=== PATIENT | female | born 1980 | race Caucasian/White ===

== ENCOUNTER → 2025-02-19 13:02 | Outpatient (REF) | payer OTHER, SELFPAY ==
--- OUTSIDE RECORDS SUMMARY | 2025-02-27 09:45 | XMS_ITS | Clinical Summary ---
Author Organization [facility] Address [address] [place] [address] Phone Care Team Providers Care Machine Spreader Name Role Phone Unavailable Primary Care Provider Unavailabl e Allergies No known active allergies Medications iron zhzjsl-m-r88-ca -succ. acid-stomach (CHROMAGEN, MULTIGEN) [id number] ws-pe-hgr-mg tablet Take 1 Tab by mouth daily. Active vit-iron fumarate-fa (YENIFER ) 28-0.8 mg Tablet Take 1 Tab by mouth daily. Active HYDROcodone-cristino taminophen (NORCO) 5-325 mg tablet Take 1 Tablet by mouth every 4 hours as needed for Pain, Moderate. Max Daily Amount: 6 Tablets 20 Tablet 7 Active ibuprofen (MOTRIN) 600 mg tablet Take 1 Tablet (600 mg) by mouth every 6 hours as needed for Other (See Comment) (for pain secondary to inflammation). 45 Tablet 7 Active Active Problems Problem Noted Date Diagnosed Date (spontaneous vaginal delivery) 05/08/2017 VAVD 6/14 girl Richy 03/14/2015 Resolved Problems Problem Noted Date Diagnosed Date Resolved Date Normal labor 05/08/2017 05/08/2017 SROM 0015, GBS+, A- 03/14/2015 03/14/20 15 Encounters Date Type Department Care Team Description 02/19/2025 External Device Data ST[facility] ABSTRACTION Provider, Abstract 02/18/2025 External Device Data [facility] ABSTRACTION Provider, Abstract 02/17/2025 External Device Data [facility] ABSTRACTION Provider, Abstract 01/13/2025 External Device Data [facility] ABSTRACTION Provider, Abstract 12/17/2024 External Device Data [facility] ABSTRACTION Provider, Abstract 12/06/2024 External Device Data [facility] ABSTRACTION Provider, Abstract 12/05/2024 External Device Data [facility] ABSTRACTION Provider, Abstract 12/03/2024 External Device Data STL ABSTRACTION Provider, Abstract from Last 3 Months Immunizations Immunization Administration Dates Next Due (ADACEL/BOOSTRIX)(10 YR UP) TDAP VACCINE, 0.5ML, IM 03/01/2015 Influenza Seasonal Unspecifi ed Formulation IM 06/01/2014 Rho (D) IMMUNE GLOBULIN 1,50 0 UNIT(300 MCG) INJECTION 05/08/2017,03/14/2015,03/05/2015,2014 Social History Tobacco Use Types Packs/Day Years Used Date Smoking Tobacco: Former Cigarettes 0.5 10 0 10/01/1988 - 10/01/1998 Smokeless Tobacco: Never Alcohol Use Standard Drinks/Week Comments No 0 (1 standard drink = 0.6 oz pur e alcohol) Comments No Sex and Gender Information Value Date Recorded Sex Assigned at Not on file Legal Sex Female 12:50 PM [employer]IXER AND [employer] Gender Identity Not on file Sexual Orientation Not on file Last Filed Vital Signs Vital Sign Reading Time Taken Comments Blood Pressure 107/75 05/10/2017 8:00 AM CDT Pulse 73 05/10/2017 8:00 AM CDT Temperature 36.5 C (97.7 F) 05/10/2017 8:00 AM CDT Respiratory Rate 18 05/10/2017 8:00 AM CDT Oxygen Saturation 100% 05/10/2017 8:00 AM CDT Inhaled Oxygen Concentration - - Weight 56.2 kg (124 lb) 05/08/2017 7:18 AM CDT Height 152.4 cm (5') 05/08/2017 7:18 AM CDT Body Mass Index 24.22 05/08/2017 7:18 AM CDT Plan of Treatment Health Maintenance Due Date Last Done Comments HEPATITIS B VACCINES (1 of 3 - 19+ 3-dose series) 1997 HPV/Cotest (21-29) 1999 CERVICAL CANCER SCREENING 02/21/2008 HPV/Cotest (30-65) 02/21/2008 PAP SMEAR 02/21/2008 COLORECTAL SCREENING 2023 Colorectal Cancer Screening 2023 FIT-DNA Q 3 years 2023 FIT/FOBT Q 1 year 2023 Flex Sig/CT Colonography Q 5 years 2023 INFLUENZA VACCINE (#1) 2024 06/01/2014 DTAP/TDAP/TD VACCINES (2 - T d or Tdap) 03/01/2025 03/01/2015 BREAST CANCER SCREENING 09/12/2025 09/12/20 24, 07/23/2021, 07/23/2021, Additional history exists Procedures Procedure Name Priority Date/Time Associated Diagnosis Comments MAMMO 3D AMA SCREEN BILAT W OR WO CAD Routine 09/12/2024 11:39 AM MIXER AND SCALER Encounter for screening for malignant neoplasm of breast, unspecified screening modality from Last 3 Months or Most Recently Relevant to Health Maintenance Results * MAMMO 3D AMA SCREEN BILAT W OR WO CAD (09/12/2024 11:39 AM MIXER AND SCALER) Anatomical Region Laterality Modality Breast Bilateral Mammography 09/12/2024 11:4 0 AM MIXER AND SCALER Impressions 09/12/2024 11:44 AM MIXER AND SCALER IMPRESSION: NO MAMMOGRAPHIC EVIDENCE OF MALIGNANCY. OVERALL BIRADS CATEGORY:2 (benign findings). ROUTINE SCREENING MAMMOGRAPHY IS RECOMMENDED IN 12 MONTHS. A normal letter will be sent to patient. Narrative 09/12/2024 11:44 AM MIXER AND SCALER EXAM: MAMMO 3D AMA SCREEN BILAT W OR WO CAD STUDY DATE: 09/12/2024 11:39 AM CLINICAL INDICATION: 44 years old female presents for routine screening mammography. COMPARISON: Prior mammograms, dated 07/23/2021 and 12/03/2013 PROCEDURE: CC and MLO digital mammographic views of the bilateral breasts are obtained. Computer Aided Detection (CAD) was utilized. Tomosynthesis was done with all views. FINDINGS: Breast Density: Heterogeneously dense Right breast: There are stable subcentimeter intramammary lymph nodes in the right upper outer breast at posterior depth. There are no spiculated masses, suspicious microcalcifications or areas of architectural distortion in the right breast. Left breast: There are no spiculated masses, suspicious microcalcifications or areas of architectural distortion in the left breast. us Maria Del Carmen Diehl DO MAMMO ORDERABLES Final Result from Last 3 Months or Most Recently Relevant to Health Maintenance Insurance [employer] [facility] Address: [address] [address] Advance Directives For more information, please contact: [phone] * Full Code (Latest Code Status on File) Date Activated Date Inactivated Comments 05/08/2017 6:06 PM 05/10/2017 12:23 PM * Full Code Date Activated Date Inactivated Comments 05/08/2017 7:50 AM 05/08/2017 6:06 PM * Full Code Date Activated Date Inactivated Comments 03/14/2015 8:50 AM 03/16/2015 1:50 PM * Full Code Date Activated Date Inactivated Comments 03/14/2015 4:02 AM 03/14/2015 8:50 AM
--- OUTSIDE RECORDS SUMMARY | 2025-02-27 09:45 | XMS_ITS | Referral Summary ---
Author Organization [facility] [address] Address [address] [facility] [place] [address] Care Team Providers Care Pick Pack Worker Name Role Phone Maria Del Carmen Diehl DO Unavailable [phone] Ella Moser Primary Care Pr ovider Allergies No known active allergies Medications nitrofurantoin monohydrate (Macrobid) 100 mg capsule Take 1 capsule (100 mg total) by mouth 2 (two) times a day Take one capsule twice daily for 5 days. 10 capsule 2 3 Active Additional Information Patient not taking.Reported on 11/16/2023 buPROPion XL (Wellbutrin XL) 150 mg 24 hr tablet Take 1 tablet (150 mg total) by mouth daily 90 tablet 4 4 Active Active Problems Problem Noted Date Diagnosed Date Encounter for screening colonoscopy 02/14/2024 Social History Tobacco Use Types Packs/Day Years Used Date Smoking Tobacco: Former Passive Smoke Exposure: Past Smokeless Tobacco: Never Tobacco Cessation:Counseling Given: Not Answered Personal Safety Answer Date Recorded Have you ever been in or are you currently in a harmful physical or emotional relationship or is someone making you feel afraid or unsafe? Denies 10/16/2024 Comments No Sex and Gender Information Value Date Recorded Sex Assigned at Not on file Legal Sex Female 9:42 AM DIRECTOR INVE[employer]ANKING Gender Identity Female 10/04/2021 7:31 PM DIRECTOR [employer] Sexual Orientation Straight 10/04/2021 7: 31 PM DIRECTOR [employer]ANKING Last Filed Vital Signs Vital Sign Reading Time Taken Comments Blood Pressure 120/78 10/16/2024 10:11 AM DIRECTOR [employer]ANKING Pulse 63 10/16/2024 10:11 AM DIRECTOR [employer]ING Temperature 36.9 C (98.5 F) 10/16/2024 10:11 AM DIRECTOR [employer]MENT [employer]ANKING Respiratory Rate 18 10/16/2024 10:11 AM DIRECTOR INVESTMENT BANKING Oxygen Saturation 100% 10/16/2024 10:11 AM DIRECTOR [employer]ANKING Inhaled Oxygen Concentration - - Weight 52.2 kg (115 lb) 10/16/2024 8:24 AM DIRECTOR [employer]ANKING Height 152.4 cm (5') 10/16/2024 8:24 AM DIRECTOR [employer]ANKING Body Mass Index 22.46 10/16/2024 8:24 AM DIRECTOR [employer]ING Plan of Treatment Not on file Procedures Procedure Name Priority Date/Time Associated Diagnosis Comments COLONOSCOPY 10/16/2024 8:16 AM DIRECTOR INVESTMENT BANKING THINPREP IMAGING PAP AND HPV MRNA E6/E7 REFLEX HPV 16,18/45 Routine 05/22/2024 10:55 AM CDT Routine gynecological examination from Last 3 Months or Most Recently Relevant to Health Maintenance Results * Colonoscopy (10/16/2024 8:16 AM DIRECTOR INVE[employer]MENT [employer]ANKING) Anatomical Region Laterality Modality Other Narrative Procedure Note Anna Naik MD - 10/16/2024 8:16 AM CST [facility] Patient Name: Lorenza Silva Procedure Date: 10/16/2024 8:16 AM Date of : 1980 Admit Type: Outpatient Age: 44 Gender: Female Attending MD: Anna Naik M.D. Room: [facility] 2 Note Status: Finalized Patient Profile: This is a 44 year old female with no significantpast medical history here for colon cancer screening.Great grandparent with colon cancer. Procedure: Colonoscopy Indications: Screening for colorectal malignant neoplasm, Thisis the patient's first colonoscopy Referring MD: Ella Moser PA-C Providers: Anna Naik M.D. Impression: - One 3 mm polyp in the cecum, removed with a jumbo cold forceps. Resected and retrieved. - External and internal hemorrhoids. Recommendation: - Patient has a contact number available for emergencies. The signs and symptoms of potential delayed complications were discussed with thepatient. Return to normal activities tomorrow. Written discharge instructions were provided to thepatient. - Discharge patient to home (with escort). - Resume previous diet. - Continue present medications. - Await pathology results. - Repeat colonoscopy in 7 years for surveillancebased on pathology results. - Return to referring physician as previously scheduled. Medicines: Monitored Anesthesia Care Complications: No immediate complications. Estimated Blood Loss: Estimated blood loss was minimal. Procedure: Pre-Anesthesia Assessment: - Prior to the procedure, a History and Physicalwas performed, and patient medications and allergieswere reviewed. The patient is competent. The risks and benefits of the procedure and the sedation optionsand risks were discussed with the patient. Allquestions were answered and informed consent was obtained. Patient identification and proposed procedure were verified by the physician, the loan officer and the computer engineering technician in the endoscopy suite. Mental Status Examination: normal. Prophylactic Antibiotics: The patient does not require prophylactic antibiotics. Prior Anticoagulants: The patient has taken no anticoagulant or antiplatelet agents. Afterreviewing the risks and benefits, the patient was deemed in satisfactory condition to undergo the procedure.The anesthesia plan was to use monitored anesthesiacare (MAC). Immediately prior to administration of medications, the patient was re-assessed foradequacy to receive sedatives. The heart rate, respiratory rate, oxygen saturations, blood pressure, adequacyof pulmonary ventilation, and response to care were monitored throughout the procedure. The physical status of the patient was re-assessed after the procedure. The benefits, risks and alternatives of theprocedure and sedation were discussed and informed consentwas obtained. All questions were answered. Please referto the signed informed consent document in the medical record. The bowel preparation used was Miralax via split dose instruction. The bowel preparation usedwas bisacodyl tablets via split dose instruction. The scope was passed under direct vision. The Pediatric Colonoscope [id number]-[id number] was introducedthrough the anus and advanced to the the cecum, identifiedby appendiceal orifice and ileocecal valve. The colonoscopy was performed without difficulty. The patient tolerated the procedure well. The qualityof the bowel preparation was good. Bowel prep was administered using a split dose. Findings: The perianal and digital rectal examinations were normal. A 3 mm polyp was found in the cecum. The polyp was sessile. The polyp was removed with a jumbo cold forceps. Resection and retrieval were complete. External and internal hemorrhoids were found during retroflexion. Anna Naik M.D. 10/16/2024 9:42:39 AM Number of Addenda: 0 Note Initiated On: 10/16/2024 8:16 AM Procedure Code(s): --- Professional --- 88109, Colonoscopy, flexible; with biopsy, single or multiple --- Technical --- 12221, Colonoscopy, flexible; with biopsy, single or multiple Diagnosis Code(s): --- Professional --- Z12.11, Encounter for screening for malignant neoplasm of colon D12.0, Benign neoplasm of cecum K64.8, Other hemorrhoids --- Technical --- Z12.11, Encounter for screening for malignant neoplasm of colon D12.0, Benign neoplasm of cecum K64.8, Other hemorrhoids CPT copyright 2020 [place] [employer]. All rights reserved. The codes documented in this report are preliminary and upon cloud architect reviewmay be revised to meet current compliance requirements. Recognized by the [place] [employer] for promoting quality in endoscopy Anna Naik MD ENDOSCOPY PROCEDURES Final Resul t * ThinPrep(R) Imaging Pap and HPV mRNA E6/E7 Reflex HPV 16,18/45 (05/22/2024 10:55 AM CDT) CLINICAL INFORMATION: [facility] Comment:None given LMP [facility] Comment:NONE GIVEN Previous Pap [facility] Comment:NONE GIVEN Prev. Bx [facility] Comment:NONE GIVEN SOURCE: [facility] Comment:None given Pap, specimen adequacy [facility] Comment: Satisfactory for evaluation. Endocervical/transformation zone component present. Age and/or menstrual status not provided HPV interp [facility] Comment: Cytology Results: Negative for intraepithelial lesion or malignancy. COMMENTS [facility] Comment: This Pap test has been evaluated with computer assisted technology. Installment Dealer [facility] Comment: MEF, CT(ASCP) CT screening location: [place] [address] [place] [address] Comment [facility] Comment: EXPLANATORY NOTE: The Pap is a screening test for cervical cancer. It is not a diagnostic test and is subject to false negative and false positive results. It is most reliable when a satisfactory sample, regularly obtained, is submitted with relevant clinical findings and history, and when the Pap result is evaluated along with historic and current clinical information. Human papillomavirus RNA, High Risk E6/E7 Not Detected Not Detected [facility] Comment: Methodology: Intelligence Applications-Mediated Amplification This assay detects E6/E7 viral messenger RNA (mRNA) from 14 high-risk HPV types (16,18,31,33,35,39,45,51,52,56,58,59,66,68). Cervical sources are required for HPV testing. If a vaginal source from a patient who has had a total hysterectomy with removal of cervix was submitted, please contact the testing laboratory for alternative testing options. For additional information, please refer to http://education.EventMama/faq/YHF583s7 (This link if provided for information/ educational purposes only.) Swab 05/22/2024 10:5 5 AM CDT 05/22/2024 9:27 PM CDT us Maria Del Carmen Amparo Fazal DO LAB CYTOLOGY ORDERABLES Final Result [facility] [address] [place] [address] [facility] [address] [place] [address] from Last 3 Months or Most Recently Relevant to Health Maintenance Insurance [employer]ESS [employer] OPEN ACCESS [employer] OPEN ACCESS Advance Directives For more information, please contact: [phone] * Full Code (Latest Code Status on File) Date Activated Date Inactivated Comments 10/16/2024 8:19 AM 10/16/2024 2:35 PM * Full Code Date Activated Date Inactivated Comments 10/16/2024 8:19 AM 10/16/2024 8:19 AM Care Teams Pick Pack Worker Relationship Specialty Start Date End Date Ella Moser PA [address] [place] [address] PCP - General Physician Transition Coach 02/14/24 [place] [address] [place] [address] Consulting Physician Obstetrics and Gynecology 11/17/23
--- OUTSIDE RECORDS SUMMARY | 2025-02-27 09:45 | XMS_ITS | Clinical Summary ---
Author Organization [facility] [id number] [facility] [place] [address] Care Team Providers Care Compliance Project Manager Name Role Phone Maria Del Carmen Diehl DO Unavailable [phone] Ella Moser Primary Care Pr ovider Allergies [...] Diagnosed Date Encounter for screening colonoscopy 02/14/2024 Surgical History Surgery Date Site/Laterality Comments TUBAL LIGATION 10/01/2016 - 09/30/2017 HYSTEROSCOPY 10/01/2018 - 09/30/2019 ENDOMETRIAL ABLATION W/ NOVASURE 05/10/2022 Novasure and LEEP CERVICAL BIOPSY W/ LOOP ELECTRODE EXCISION 05/10/2022 for RUBENS 1 POS 16 HRHPV Medical History Medical History Date Comments 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 n 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 2020 pos 16, neg 18 Meningitis 1979 Anxiety not requiring me dication Family History Medical History Relation Name Comments Breast cancer Paternal Grandmother deceas ed from stroke Ovarian cancer Paternal Half-Sister berto gusman's mother ovarian cancer Colon cancer Neg Hx Relation Name Status Comments Paternal Grandmother Paternal Half-Sister berto Alive Social History Tobacco Use Types Packs/Day Years [...] on file Legal Sex Female 9:42 AM BRIM POUNCING MACHINE OPERATOR Gender Identity Female 10/04/2021 7:31 PM BRIM POUNCING MACHINE OPERATOR Sexual Orientation Straight 10/04/2021 7: 31 PM BRIM POUNCING MACHINE OPERATOR Obstetrics History Para Term AB IAB SAB Ectopic Multiple Livin g Live Births 6 4 4 2 2 4 4 Date Outcome GA Total Labor Labor/2nd/3rd Weight Sex Type Anes PTL Paula A1 A5 Name Clin 03/2004 SAB Demise 005 Term M Vag-S pont Living Comments:Ghassan Bellamy 008 Term M Vag-S pont Living Comments:Ghassan Lazaro 015 Term F Vag-S pont Living Comments:Fernando Lockhart 07/2016 SAB Demise 017 Term F Vag-S pont Living Comments:Fernando Johnson Last Filed Vital Signs Vital Sign Reading Time Taken Comments Blood Pressure 120/78 10/16/2024 10:11 AM BRIM POUNCING MACHINE OPERATOR Pulse 63 10/16/2024 10:11 AM BRIM POUNCING MACHINE OPERATOR Temperature 36.9 C (98.5 F) 10/16/2024 10:11 AM BRIM POUNCING MACHINE OPERATOR Respiratory Rate 18 10/16/2024 10:11 AM BRIM POUNCING MACHINE OPERATOR Oxygen Saturation 100% 10/16/2024 10:11 AM BRIM POUNCING MACHINE OPERATOR Inhaled Oxygen Concentration - - Weight 52.2 kg (115 lb) 10/16/2024 8:24 AM BRIM POUNCING MACHINE OPERATOR Height 152.4 cm (5') 10/16/2024 8:24 AM BRIM POUNCING MACHINE OPERATOR Body Mass Index 22.46 10/16/2024 8:24 AM BRIM POUNCING MACHINE OPERATOR Plan of Treatment Health Maintenance Due Date Last Done Comments Depression Screening 1980 Hepatitis C Screening 1980 Hepatitis B Screening 02/21/1996 DTaP/Tdap/Td Vaccine (2 - Td or Tdap) 03/01/2025 03/01/2015 Cervical Cancer Screening 05/22/20252023, 11/16/2023, 05/18/2023, Additional history exists Regular Well Visit/Exam 18-64 05/22/2025 05/22/2024, 05/18/2023, 04/05/2022, Additional history exists Influenza Vaccine (Season Ended) 2025 07/28/2019, 09/05/2018, 06/01/2014 Breast Cancer Screening-Mammogram 09/12/2025 09/12/2024, 09/12/2024 Colon Cancer Screening-Colonoscopy 10/16/2034 10/16/2024 HPV Vaccines Aged Out No longer eligi ble based on patient's age to complete this topic Pneumococcal vaccine <65 Aged Out No longer eligible based on patient's age to complete this topic Procedures Procedure Name Priority Date/Time Associated Diagnosis Comments COLONOSCOPY 10/16/2024 8:16 AM BRIM POUNCING MACHINE OPERATOR THINPREP IMAGING PAP AND HPV MRNA E6/E7 REFLEX HPV 16,18/45 Routine 05/22/2024 10:55 AM CDT Routine gynecological examination from Last 3 Months or Most Recently Relevant to Health Maintenance Results * Colonoscopy (10/16/2024 8:16 AM BRIM POUNCING MACHINE OPERATOR) Anatomical Region Laterality Modality Other Narrative Procedure Note Anna Naik MD - 10/16/2024 8:16 AM CST [facility] Patient Name: Lorenza Silva Procedure Date: 10/16/2024 8:16 AM Date of : 1980 Admit Type: Outpatient Age: 44 Gender: Female Attending MD: Yixi Tu , M.D. Room: [facility] ENDOSCOPY ROOM 2 Note Status: Finalized Patient [...] procedure were verified by the physician, the foreign car mechanic and the electronic service technician in the endoscopy suite. Mental Status [...] under direct vision. The Pediatric Colonoscope [id number] was introducedthrough the anus and advanced to [...] 8:16 AM Procedure Code(s): --- Professional --- 49304, Colonoscopy, flexible; with biopsy, single or multiple --- Technical --- 60444, Colonoscopy, flexible; with biopsy, single or multiple Diagnosis Code(s): --- Professional --- Z12.11, Encounter for screening for malignant neoplasm of colon D12.0, Benign neoplasm of cecum K64.8, Other hemorrhoids --- Technical --- Z12.11, Encounter for screening for malignant neoplasm of colon D12.0, Benign neoplasm of cecum K64.8, Other hemorrhoids CPT copyright 2020 [employer]. All rights reserved. The codes documented in this report are preliminary and upon land leasing information clerk reviewmay be revised to meet current compliance requirements. Recognized by the [employer] for promoting quality in endoscopy Anna Naik MD ENDOSCOPY PROCEDURES Final Resul t * ThinPrep(R) Imaging Pap and HPV mRNA E6/E7 Reflex HPV 16,18/45 (05/22/2024 10:55 AM CDT) CLINICAL INFORMATION: [facility] Comment:None given LMP [facility] Comment:NONE GIVEN Previous Pap [facility] Comment:NONE GIVEN Prev. Bx [facility] Comment:NONE GIVEN SOURCE: [facility] Comment:None given Pap, specimen adequacy [facility] Comment: Satisfactory for evaluation. Endocervical/transformation zone component present. Age and/or menstrual status not provided HPV interp [facility] Comment: Cytology Results: Negative for intraepithelial lesion or malignancy. COMMENTS [facility] Comment: This Pap test has been evaluated with computer assisted technology. Border Measurer And Cutter [facility] Comment: MEF, CT(ASCP) CT screening location: [place] [address] [place] [address] [facility] Comment: EXPLANATORY NOTE: The Pap is a [...] High Risk E6/E7 Not Detected Not Detected [facility] Comment: Methodology: Varnish Maker-Mediated Amplification This assay detects E6/E7 viral messenger RNA (mRNA) from 14 high-risk HPV types (16,18,31,33,35,39,45,51,52,56,58,59,66,68). Cervical sources are required for HPV testing. If a vaginal source from a patient who has had a total hysterectomy with removal of cervix was submitted, please contact the testing laboratory for alternative testing options. For additional information, please refer to http://education.TripTouch/faq/OGL730r0 (This link if provided for information/ educational purposes only.) Swab 05/22/2024 10:5 5 AM CDT 05/22/2024 9:27 PM CDT Maria Del Carmen Diehl DO LAB CYTOLOGY ORDERABLES Final Result [facility] [address] [place] [address] [facility] [address] [place] [address] from Last 3 Months or Most Recently Relevant to Health Maintenance Insurance [employer] OPEN ACCESS [employer] OPEN ACCESS [employer] OPEN ACCESS Advance Directives For more information, please contact: [phone] * Full Code (Latest Code Status on File) Date Activated Date Inactivated Comments 10/16/2024 8:19 AM 10/16/2024 2:35 PM * Full Code Date Activated Date Inactivated Comments 10/16/2024 8:19 AM 10/16/2024 8:19 AM Care Teams Compliance Project Manager Relationship Specialty Start Date End Date Ella Moser PA [address] [place] [address] PCP - General Physician Wireless Network Engineer 02/14/24 [place] [address] [place] [address] Consulting Physician Obstetrics and Gynecology 11/17/23
--- OUTSIDE RECORDS SUMMARY | 2025-02-27 09:45 | XMS_ITS | Continuity of Care Document ---
Author Organization [facility] Address [address] [place] [address] [address] [place] [address] Phone Care Team Providers Care Pricing Director Name Role Phone Vargas OD, Remi Unavailable Unavailable Procedures Procedure Date Eye Exam & Treatment Refraction Eye Exam, New Patient Refraction Advance Directives Directive Yes / No Effective Date File Name No Information Encounters Encounter Description Practice Location Reason(s) For Visit Diagnoses Date Provider Providers Copied on Encounter [facility], [id number] [place] [address] [address], [place], [place], [id number], [place] tel:[phone] [facility] No Information 200 9 Vargas OD Remi. [address] , [address], [place], [address], [place]. tel:[phone] [facility], [address] [place] [address] [address], [place], [place], [id number], [place] tel:[phone] [facility] No Information 8 7 Wankum Pramod. [address] [facility], [address], [place], [place], [id number], [place]. tel:[phone] Family History Family Member Type Diagnosis Age At Onset No Information Payers Payer name Insurance type Covered republican ID Authoriza tion(s) No Information Social History Type Description Quantity Date Captured Comments Sex Female Smoking Status No Information Chief Complaint And Reason For Visit No Information Reason For Referral Reason For Referral No Information History Of Present Illness Encounter Date Complaint History Of Prese nt Illness No Information Functional Status Date Functional Assessmen t No Information Instructions Date Instruction Additional Infor mation No Information Assessments Type Assessment Date No Information Patient Care Teams Name Effective Dates (start - stop) Status Members No Information
--- OUTSIDE RECORDS SUMMARY | 2025-02-27 09:45 | XMS_ITS | Data Portability ---
Author Organization [facility] Address [address] [place] [address] Care Team Providers Care Drum Builder Name Role Phone ELLA MELENDREZ Primary Care Provider Unavailab le Assessment Encounter Date Assessment Date Assessment LastModified by Organization Details LastModified Time 02/13/2024 02/13/2024 For gynecology sees [facility] in [facility]. Mammogram is due. eye exam and dental UTD [email or web address] Not available 03/02/2024 20:33:05 Plan of Treatment Reminders Order Date Submit Date Provider Last Modified By Organization Details Last Modified Time Details Appointments ANNUA L 30 2025 09:30A M BRODERICK [place] Not available Not available Not available Lab lh + FSH, serum 2023 024 [facility], [address] [facility] [address], [place], [address], 03/11/2024 10:14:54 estra diol, serum 2023 024 [facility], [address] [facility] [address], [place], [address], 03/11/2024 10:14:52 proge stero ne, serum 2023 024 [facility], [address] [facility], [facility] [address], [place], [address], 03/11/2024 10:14:50 TSH + free T4, serum 2023 024 [facility], [address] [facility], [facility] [address], [place], [address], 03/11/2024 10:14:47 lipid panel , serum 2023 024 [facility], [address] [facility], [facility] [address], [place], [address], 03/11/2024 10:14:46 CMP, serum or plasm a 2023 024 [facility], [address] [facility], [facility] [address], [place], [address], 03/11/2024 10:14:48 CBC w/ auto diff 2023 024 [facility], [address] [facility], [facility] [address], [place], [address], 03/11/2024 10:14:53 HbA1c (hemo globi n A1c), blood 2023 024 [facility], [address] [facility], [facility] [address], [place], [address], 03/11/2024 10:14:49 Referral None recor ded. Procedures colon oscop y scree arnold (PROC ) [address] [facility] [place], [address] [place] [address], [address], [place], [address], 10/16/2024 10:46:13 Surgeries None recor ded. Imaging None recor ded. Medication Orders None recor ded. Patient TargetsNo targets recorded. Patient InstructionsNo instructions recorded. Reason for Referral Plastic Surgeon Referral for Cyst of scalp 1cm approx superior cyst. Referring Physician: Ella Melendrez, Internal Medicine, Encounter Date: 02/13/2025 Results Created Date Observation Date Name Description Value Unit Range Abnormal Flag Note LastModifiedBy Organization Detail LastModifiedTime 03/10/20 24 03/11/2024 LIPID PANEL W/ CHOL/ HDL RATIO cholesterol, total 195 mg/dL 100-19 9 Not Available [facility] ([facility]) [address] [facility], [place], [address], 03/11/2024 10:14:45 03/10/20 24 03/11/2024 LIPID PANEL W/ CHOL/ HDL RATIO triglyceride s 67 mg/dL 0-149 Not Available [facility] ([facility]) [address] [place], [address], 03/11/2024 10:14:45 03/10/20 24 03/11/2024 LIPID PANEL W/ CHOL/ HDL RATIO HDL cholesterol 90 mg/dL >39 Not Available [facility] ([facility]) [address] [place], [address], 03/11/2024 10:14:45 03/10/20 24 03/11/2024 LIPID PANEL W/ CHOL/ HDL RATIO VLDL cholesterol marielos 12 mg/dL 5-40 Not Available [facility] ([facility]) [address] [place], [address], 03/11/2024 10:14:45 03/10/20 24 03/11/2024 LIPID PANEL W/ CHOL/ HDL RATIO LDL chol calc ([facility]) 93 mg/dL 0-99 Not Available [facility] ([facility]) [address] [place], [address], 03/11/2024 10:14:45 03/10/20 24 03/11/2024 LIPID PANEL W/ CHOL/ HDL RATIO LDL calc comment: - Test not perfo rmed Not Available [facility] ([facility]) [address] [place], [address], 03/11/2024 10:14:45 03/10/20 24 03/11/2024 LIPID PANEL W/ CHOL/ HDL RATIO T. chol/HDL ratio 2.2 ratio 0.0-4. 4 T. Chol/ HDL Ratio Men Women 1/2 Avg.R isk 3.4 3.3 Avg.R isk 5.0 4.4 2X Avg.R isk 9.6 7.1 3X Avg.R isk 23.4 11.0 Not Available [facility] ([facility]) [address] [place], [address], 03/11/2024 10:14:45 03/10/20 24 03/11/2024 TSH+F REE T4 TSH 2.570 uIU/m L 0.450- 4.500 Not Available [facility] ([facility]) [address] [place], [address], 03/11/2024 10:14:47 03/10/20 24 03/11/2024 TSH+F REE T4 T4,free(dire ct) 1.03 NG/dL 0.82-1 .77 Not Available [facility] ([facility]) [address] [place], [address], 03/11/2024 10:14:47 03/10/20 24 03/11/2024 COMP. METAB OLIC PANEL (14) glucose 96 mg/dL 70-99 Not Available [facility] ([facility]) [address] [place], [address], 03/11/2024 10:14:48 03/10/20 24 03/11/2024 COMP. METAB OLIC PANEL (14) BUN 13 mg/dL 6-24 Not Available [facility] ([facility]) [address] [place], [address], 03/11/2024 10:14:48 03/10/20 24 03/11/2024 COMP. METAB OLIC PANEL (14) creatinine 0.76 mg/dL 0.57-1 .00 Not Available [facility] ([facility]) [address] [place], [address], 03/11/2024 10:14:48 03/10/20 24 03/11/2024 COMP. METAB OLIC PANEL (14) eGFR 98 mL/mi n/1.7 3 >59 Not Available [facility] ([facility]) [address] [facility] [address], [place], [address], 03/11/2024 10:14:48 03/10/20 24 03/11/2024 COMP. METAB OLIC PANEL (14) BUN/creatini ne ratio 17 9-23 Not Available [facility] ([facility]) [address] [facility] [address], [place], [address], 03/11/2024 10:14:48 03/10/20 24 03/11/2024 COMP. METAB OLIC PANEL (14) sodium 140 mmol/ L 134-14 4 Not Available [facility] ([facility]) [address] [facility] [address], [place], [address], 03/11/2024 10:14:48 03/10/20 24 03/11/2024 COMP. METAB OLIC PANEL (14) potassium 4.1 mmol/ L 3.5-5. 2 Not Available [facility] ([facility]) [address] [facility], [place], [address], 03/11/2024 10:14:48 03/10/20 24 03/11/2024 COMP. METAB OLIC PANEL (14) chloride 102 mmol/ L 96-106 Not Available [facility] ([facility]) [address] [facility] [address], [place], [address], 03/11/2024 10:14:48 03/10/20 24 03/11/2024 COMP. METAB OLIC PANEL (14) carbon dioxide, total 24 mmol/ L 20-29 Not Available [facility] ([facility]) [address] [facility] [address], [place], [address], 03/11/2024 10:14:48 03/10/20 24 03/11/2024 COMP. METAB OLIC PANEL (14) calcium 9.2 mg/dL 8.7-10 .2 Not Available [facility] ([facility]) [address] [facility], [place], [address], 03/11/2024 10:14:48 03/10/20 24 03/11/2024 COMP. METAB OLIC PANEL (14) protein, total 6.7 g/dL 6.0-8. 5 Not Available [facility] ([facility]) [address] [facility], [place], [address], 03/11/2024 10:14:48 03/10/20 24 03/11/2024 COMP. METAB OLIC PANEL (14) albumin 4.5 g/dL 3.9-4. 9 Not Available [facility] ([facility]) [address] [facility], [place], [address], 03/11/2024 10:14:48 03/10/20 24 03/11/2024 COMP. METAB OLIC PANEL (14) globulin, total 2.2 g/dL 1.5-4. 5 Not Available [facility] ([facility]) [address] [facility], [place], [address], 03/11/2024 10:14:48 03/10/20 24 03/11/2024 COMP. METAB OLIC PANEL (14) A/G ratio 2.0 Not Available [facility] ([facility]) [address] [facility], [place], [address], 03/11/2024 10:14:48 03/10/20 24 03/11/2024 COMP. METAB OLIC PANEL (14) bilirubin, total 0.4 mg/dL 0.0-1. 2 Not Available [facility] ([facility]) [address] [facility] [address], [place], [address], 03/11/2024 10:14:48 03/10/20 24 03/11/2024 COMP. METAB OLIC PANEL (14) alkaline phosphatase 50 IU/L 44-121 Not Available [facility] ([facility]) [address] [facility] [address], [place], [address], 03/11/2024 10:14:48 03/10/20 24 03/11/2024 COMP. METAB OLIC PANEL (14) AST (SGOT) 23 IU/L 0-40 Not Available [facility] ([facility]) [address] [place], [address], 03/11/2024 10:14:48 03/10/20 24 03/11/2024 COMP. METAB OLIC PANEL (14) ALT (SGPT) 19 IU/L 0-32 Not Available [facility] ([facility]) [address] [place], [address], 03/11/2024 10:14:48 03/10/20 24 03/11/2024 HEMOG LOBIN A1C hemoglobin A1C 5.4 % 4.8-5. 6 Predi abete s: 5.7 - 6.4 Diabe starr: >6.4 Glyce otto contr ol for adult s with diabe starr: <7.0 Not Available [facility] ([facility]) [address] [place], [address], 03/11/2024 10:14:49 03/10/20 24 03/11/2024 PROGE STERO NE progesterone 0.2 NG/mL Folli cular phase 0.1 - 0.9 Lutea l phase 1.8 - 23.9 Ovula tion phase 0.1 - 12.0 Pregn ant First trime ster 11.0 - 44.3 Secon d trime ster 25.4 - 83.3 Third trime ster 58.7 - 214.0 Postm enopa usal 0.0 - 0.1 Not Available [facility] ([facility]) [address] [place], [address], 03/11/2024 10:14:50 03/10/20 24 03/11/2024 ESTRA DIOL estradiol 92.9 pg/mL Adult Femal e Range Folli cular phase 12.5 - 166.0 Ovula tion phase 85.8 - 498.0 Lutea l phase 43.8 - 211.0 Postm enopa usal <6.0 - 54.7 Pregn ivy 1st trime ster 215.0 - >4300 .0 Sabi ECLIA metho dolog y Not Available [facility] ([facility]) [address] [facility] [address], [place], [address], 03/11/2024 10:14:51 03/10/20 24 03/11/2024 CBC WITH DIFFE RENTI AL/PL ATELE T WBC 5.6 x10e3 /uL 3.4-10 .8 Not Available [facility] ([facility]) [address] [facility] [address], [place], [address], 03/11/2024 10:14:53 03/10/20 24 03/11/2024 CBC WITH DIFFE RENTI AL/PL ATELE T RBC 3.89 x10e6 /uL 3.77-5 .28 Not Available [facility] ([facility]) [address] [facility] [address], [place], [address], 03/11/2024 10:14:53 03/10/20 24 03/11/2024 CBC WITH DIFFE RENTI AL/PL ATELE T hemoglobin 12.5 g/dL 11.1-1 5.9 Not Available [facility] ([facility]) [address] [place], [address], 03/11/2024 10:14:53 03/10/20 24 03/11/2024 CBC WITH DIFFE RENTI AL/PL ATELE T hematocrit 36.8 % 34.0-4 6.6 Not Available [facility] ([facility]) [address] [place], [address], 03/11/2024 10:14:53 03/10/20 24 03/11/2024 CBC WITH DIFFE RENTI AL/PL ATELE T MCV 95 fL 79-97 Not Available [facility] ([facility]) [address] [place], [address], 03/11/2024 10:14:53 03/10/20 24 03/11/2024 CBC WITH DIFFE RENTI AL/PL ATELE T MCH 32.1 pg 26.6-3 3.0 Not Available [facility] ([facility]) [address] [facility] [address], [place], [address], 03/11/2024 10:14:53 03/10/20 24 03/11/2024 CBC WITH DIFFE RENTI AL/PL ATELE T MCHC 34.0 g/dL 31.5-3 5.7 Not Available [facility] ([facility]) [address] [facility] [address], [place], [address], 03/11/2024 10:14:53 03/10/20 24 03/11/2024 CBC WITH DIFFE RENTI AL/PL ATELE T RDW 12.4 % 11.7-1 5.4 Not Available [facility] ([facility]) [address] [facility] [address], [place], [address], 03/11/2024 10:14:53 03/10/20 24 03/11/2024 CBC WITH DIFFE RENTI AL/PL ATELE T platelets 308 x10e3 /uL 150-45 0 Not Available [facility] ([facility]) [address] [facility] [address], [place], [address], 03/11/2024 10:14:53 03/10/20 24 03/11/2024 CBC WITH DIFFE RENTI AL/PL ATELE T neutrophils 58 % notest ab. Not Available [facility] ([facility]) [address] [place], [address], 03/11/2024 10:14:53 03/10/20 24 03/11/2024 CBC WITH DIFFE RENTI AL/PL ATELE T lymphs 31 % notest ab. Not Available [facility] ([facility]) [address] [place], [address], 03/11/2024 10:14:53 03/10/20 24 03/11/2024 CBC WITH DIFFE RENTI AL/PL ATELE T monocytes 9 % notest ab. Not Available [facility] ([facility]) [address] [facility], [place], [address], 03/11/2024 10:14:53 03/10/20 24 03/11/2024 CBC WITH DIFFE RENTI AL/PL ATELE T eos 1 % notest ab. Not Available [facility] ([facility]) [address] [facility] [address], [place], [address], 03/11/2024 10:14:53 03/10/20 24 03/11/2024 CBC WITH DIFFE RENTI AL/PL ATELE T basos 1 % notest ab. Not Available [facility] ([facility]) [address] [facility] [address], [place], [address], 03/11/2024 10:14:53 03/10/20 24 03/11/2024 CBC WITH DIFFE RENTI AL/PL ATELE T neutrophils (absolute) 3.2 x10e3 /uL 1.4-7. 0 Not Available [facility] ([facility]) [address] [facility], [place], [address], 03/11/2024 10:14:53 03/10/20 24 03/11/2024 CBC WITH DIFFE RENTI AL/PL ATELE T lymphs (absolute) 1.7 x10e3 /uL 0.7-3. 1 Not Available [facility] ([facility]) [address] [facility], [place], [address], 03/11/2024 10:14:53 03/10/20 24 03/11/2024 CBC WITH DIFFE RENTI AL/PL ATELE T monocytes(ab solute) 0.5 x10e3 /uL 0.1-0. 9 Not Available [facility] ([facility]) [address] [facility] [address], [place], [address], 03/11/2024 10:14:53 03/10/20 24 03/11/2024 CBC WITH DIFFE RENTI AL/PL ATELE T eos (absolute) 0.1 x10e3 /uL 0.0-0. 4 Not Available [facility] ([facility]) [address] [place], [address], 03/11/2024 10:14:53 03/10/20 24 03/11/2024 CBC WITH DIFFE RENTI AL/PL ATELE T baso (absolute) 0.1 x10e3 /uL 0.0-0. 2 Not Available [facility] ([facility]) [address] [place], [address], 03/11/2024 10:14:53 03/10/20 24 03/11/2024 CBC WITH DIFFE RENTI AL/PL ATELE T immature granulocytes 0 % notest ab. Not Available [facility] ([facility]) [address] [place], [address], 03/11/2024 10:14:53 03/10/20 24 03/11/2024 CBC WITH DIFFE RENTI AL/PL ATELE T immature grans (abs) 0.0 x10e3 /uL 0.0-0. 1 Not Available [facility] ([facility]) [address] [place], [address], 03/11/2024 10:14:53 03/10/20 24 03/11/2024 FSH AND LH LH 5.6 mIU/m L Adult Femal e Range Folli cular phase 2.4 - 12.6 Ovula tion phase 14.0 - 95.6 Lutea l phase 1.0 - 11.4 Postm enopa usal 7.7 - 58.5 Not Available [facility] ([facility]) [address] [place], [address], 03/11/2024 10:14:54 03/10/20 24 03/11/2024 FSH AND LH FSH 7.6 mIU/m L Adult Femal e Range Folli cular phase 3.5 - 12.5 Ovula tion phase 4.7 - 21.5 Lutea l phase 1.7 - 7.7 Postm enopa usal 25.8 - 134.8 Not Available [facility] ([facility]) [address] [facility] [address], [place], [address], 03/11/2024 10:14:54 05/22/20 24 05/22/2024 pap, IG + HR HPV HPV negati ve Not Available Not Available 15:29:24 11/06/19 25 10/16/2024 colon oscop y scree arnold (PROC ) No observ ation record ed. [facility] [address], [place], [address], 11/07/2024 00:44:52 Result Notes None recorded. Problems Name Problem SNOMED Code Status Onset Date Resolution Date Notes Provider Name and Address Organization Details Recorded Time [facility] 5188082299668 04 Active 2023 BRODERICK Medellin Attn: Elyse mitchell,[address] [facility], [place], [address], [facility] 4 20:34:10 History of polyp of colon 838771309 Active 2024 BRODERICK Med[place]in Attn: Elyse mitchell,[address] [facility], [place], [address], [facility] 5 10:33:49 Problem Notes None recorded. Procedures Surgical History Date Name Laterality Status Provider Name and Address Organization Details Recorded Time colonoscopy completed Jessie Rolle MA [facility] 02/13/2025 10:22:29 excision of bilateral fallopian tubes and ovaries completed Jessie Rolle MA [facility] 02/13/2024 17:43:27 D & c after delivery completed Jessie Rolle MA [facility] 02/13/2024 17:43:32 LEEP completed Jessie Rolle MA [facility] 02/13/2024 17:43:37 Imaging Results None recorded. Procedure Notes None recorded. Medical Equipment None Reported. Allergies No known drug allergies Medications Not known to be on any medication Vitals Date Recorded Body weight Respiratory rate Body mass index (BMI) Body height Oxygen saturation Oxygen saturation in Arterial blood by Pulse oximetry Heart rate Systolic blood pressure Diastolic blood pressure Provider Name and Address Organization Details Last Updated DateTime 4 66052.3 1 g 20 /min 22.8 kg/m2 152.4 cm 99 % 99 % 77 /min 128 mm[Hg] 78 mm[Hg] Jessie Rolle MA [facility] 4 16:49:22 Date Recorded Body height Body mass index (BMI) Body weight Respiratory rate Oxygen saturation Oxygen saturation in Arterial blood by Pulse oximetry Heart rate Systolic blood pressure Diastolic blood pressure Provider Name and Address Organization Details Last Updated DateTime 5 152.4 cm 22.3 kg/m2 94772.5 3 g 18 /min 100 % 100 % 62 /min 122 mm[Hg] 70 mm[Hg] Jessie Rolle MA [facility] 5 10:24:26 Date Recorded Body height Body mass index (BMI) Body weight Body temperature Respiratory rate Heart rate Systolic blood pressure Diastolic blood pressure Provider Name and Address Organization Details Last Updated DateTime 5 152.4 cm 23.6 kg/m2 65907.6 8 g 98 [degF] 16 /min 62 /min 124 mm[Hg] 75 mm[Hg] Elvia trujillo MA [facility] 5 12:37:32 Social History Question Answer Notes LastModified by Organizat ion Details LastModified Time Tobacco Smoking Status Former Smoker quit 25 Jessie Rolle MA [facility], [facility] 02/13/2024 16:46:03 Do You Have An Advance Directive? No Information not available 02/13/2024 Are You Blind Or Do You Have Difficulty Seeing? No Glasses Information not available 02/13/2024 What Is Your Level Of Caffeine Consumption? Occasional Tea, 1x A Week Information not available 02/13/2024 In The 14 Days Before Symptom Onset, Have You Had Close Contact [facility] While That Case Was Ill? No Information not available 02/13/2024 In The 14 Days Before Symptom Onset, Have You Had Close Contact With A Person Who Is Under Investigation For COVID-19 While That Person Was Ill? No Information not available 02/13/2024 Have You Been To An Area Known To Be High Risk For COVID-19? No Information not available 02/13/2024 Are You Deaf Or Do You Have Serious Difficulty Hearing? No Information not available 02/13/2024 What Type Of Diet Are You Following? REGULAR Information not available 02/13/2024 Are There Any Guns Present In Your Home? No Information not available 02/13/2024 What Was The Date Of Your Most Recent Tobacco Screening? 02/16/2025 [email or web address] Information not available 02/16/2025 What Is Your Current Pack Years? 10-19packyear s Information not available 02/13/2024 What Is Your Relationship Status? Information not available 02/13/2024 Do You Use Your Seat Belt Or Car Seat Routinely? Yes Information not available 02/13/2024 Do You Have Smoke And Carbon Monoxide Detectors In Your Home? Yes Information not available 02/13/2024 At What Age Did You Start Smoking Tobacco? 10 Information not available 02/13/2024 How Much Tobacco Do You Smoke? No Information not available 02/13/2024 Do You Use Sunscreen Routinely? Yes Information not available 02/13/2024 Has Tobacco Cessation Counseling Been Provided? Yes Information not available 02/13/2024 On What Date Was Tobacco Cessation Counseling Provided? 02/13/2025 Information not available 02/13/2025 Sex: Female Functional Status Question Answer Note LastModified by Organizat ion Details LastModified Time Do you use any illicit or recreational drugs? No Information not available 02/13/2024 Do you or have you ever used any other forms of tobacco or nicotine? No Information not available 02/13/2024 What is your level of alcohol consumption? Occasional Information not available 02/13/2024 Are you able to care for yourself? Yes Information not available 02/13/2024 What is your exercise level? Moderate 5x days Information not available 02/13/2024 Mental Status None recorded. Family History Relationship Description Onset Age of this Age Resolved Age Notes LastModified by Organization Details LastModified Time Mother Depressive disorder [email or web address] Not available 2023 17:43:54 Mother Disorder of thyroid gland [email or web address] Not available 2023 17:44:19 Mother Hypertensive disorder [email or web address] Not available 2023 17:44:29 Mother Hypercholest erolemia [email or web address] Not available 2023 17:44:33 Father Heart disease [email or web address] Not available 2023 17:44:24 Father Malignant neoplasm of prostate [email or web address] Not available 2023 17:44:41 Medical History Condition Response Coronary Artery Disease N Other N High Blood Pressure N Atrial Fibrillation N Kidney or Bladder Problems N Thyroid Problems N GI Problems N Depression Y COPD N Blood Clots N Skin Problems N Anemia N Heart Attack (CT) N Anxiety Disorder Y Diabetes N Muscle, Joint, or Bone Problems N Seizures/Epilepsy N Acid Reflux (GERD) N Cancer N Stroke N Asthma N Allergies Y High Cholesterol N Hepatitis N Liver Disease N Headaches N Heart Failure N Osteoporosis N Gynecological History Statement/Question Response Menses Monthly N Obstetrics History GPAL:G 6 P 4 0 0 4 Type Value Full Term 4 Induced 0 Spontaneous 0 Premature 0 Living 4 Total 6 Immunizations Vaccine Type Date Status Note Provider Nam e and Address Organization Details Recorded Time Influenza, split virus, quadrivalent, PF 09/05/2018 completed Not Available [facility] 5 10:14:13 Influenza, split virus, quadrivalent, PF 07/28/2019 completed Not Available [facility] 5 10:14:13 Influenza, split virus, quadrivalent, PF 07/11/2021 completed Not Available [facility] 5 10:14:13 COVID-19, mRNA, LNP-S, PF, 100 mcg/0.5mL dose or 50 mcg/0.25mL dose 08/03/2021 completed Not Available [facility] 5 10:14:13 COVID-19, mRNA, LNP-S, PF, 100 mcg/0.5mL dose or 50 mcg/0.25mL dose 11/03/2020 completed Marlen Lazaro MA null, [place] [facility] 11/03/2020 17:04:34 COVID-19, mRNA, LNP-S, PF, 100 mcg/0.5mL dose or 50 mcg/0.25mL dose 12/01/2020 completed Ruby Bhat MA null, [place] [facility] 12/01/2020 15:56:56 Past Encounters Encounter ID Performer Location Encounter Start Date Encounter Closed Date Diagnosis/Indication Diagnosis SNOMED-CT Code Diagnosis ICD10 Code Diagnosis Note [id number] MD Pedrito Mo 14 IM 4 [facility] [place] [address] 11/03/2020 11:18:04 11/03/2020 18:10:35 Administration of SARS-CoV-2 antigen vaccine 232282397 Z23 [id number] MD Pedrito Mo 14 IM [address] [facility] [place] [address] 12/01/2020 11:01:13 12/02/2020 08:49:52 Administration of SARS-CoV-2 antigen vaccine 865876719 Z23 [id number] Fernandez Parsons MD [facility] [employer] [address] [place] [address] 02/13/2024 16:36:43 03/03/2024 18:48:00 Adult health examination 791041624 Z00.00 new wellness exam completed. Routine labs ordered , fasting. Cholesterol screening 27 4865297 Z13.220 fasting lipids ordered Diabetes m ellitus screening 645425450 Z13.1 a1c screening ordered Thyroid di sorder screening 939271428 Z13.29 routine thyroid function panel ordered for screening. Screening for malignant neoplasm of colon 844657624 Z12.11 referral for baseline colonoscop y evaluation . Perimenopausal state 494 2887645 88481 Z78.0 screening hormone panel requested by patient. [id number] Fernandez Parsons MD [facility] [employer] [address] [place], [employer] [id number] 02/13/2025 10:10:02 02/13/2025 11:07:54 Positive screening for depression on PHQ-9 (Patient Health Questionnaire 9) 2757534408 96546 Z13.31 Adult heal th examination 948839321 Z00.00 new pt wellness exam completed. Routine labs ordered , fasting. Cholesterol screening 27 2629226 Z13.220 fasting lipids ordered Diabetes m ellitus screening 126064148 Z13.1 a1c screening ordered Thyroid di sorder screening 249527264 Z13.29 routine thyroid function panel ordered for screening. Perimenopausal state 423 2707985 23563 Z78.0 screening hormone panel requested by patient. History of polyp of colon 960718785 Z86.0100 Colonoscop y completed October 16, 2024 shows 1 3 mm polyp in the cecum internal and external hemorrhoid s. She will repeat in 7 years Fatigue 63193423 R53.83 Cyst of scalp 423417822 L72.9 Normal weight 81441287 Z 68.22 [id number] MD [facility] [address] [address] 02/16/2025 12:31:15 02/16/2025 14:27:12 Impacted cerumen in left ear [id number] H61.22 cerumen cleared follow back if she has further difficulti es Health Concerns Section Related Observation LastModified by Organization Detai ls LastModified Time None Recorded Concern Status LastModified by Organization Details LastModified Time None Recorded Advance Directives Directive N: Payers Encounter Date Sequence Insurance Name Policy Number Policy Lechuga Covered Member ID Lechuga Member ID Guarantor Name 11/03/2020 1 [employer] - ALLIED BENEFITS - OPEN ACCESS Tyrell Themas [id number] Lorenza Themas 12/01/2020 1 [employer] - ALLIED BENEFITS - OPEN ACCESS Tyrell Themas [id number] Lorenza Themas 02/13/2024 1 [employer] - ALLIED BENEFITS - OPEN ACCESS Tyrell Themas [id number] Lorenza Themas 02/16/2025 1 [employer] - ALLIED BENEFITS - OPEN ACCESS Tyrell Themas [id number] Lorenza Themas Notes Date Note Type Note Provider Name and Address Organization Details Recorded Time 02/13/2024 text/html pt is here to establish care with new PCP. she is perimenopausal. Due for labs and colonoscopy screening. She does not take any medications. BRODERICK Medellin Attn: Accounting,[address] [facility], [place], [address], [facility] 03/02/2024 20:35:08 02/16/2025 text/html patient complaining of blockage of her left ear. She was told she had wax in her ear and tried to clear it with wax remover has been unsuccessfully. Lalo Newsome MD [address] [place], [address], [facility] 02/16/2025 12:49:29 OBGyn Episode No OBEpisode recorded.
== END ==
LOC: ANHLAB 13:02
PROVIDERS: Visit Provider Plastic Surgery
DX: L72.11 Pilar cyst (principal)
CPT/HCPCS: 88305